=== PATIENT | male | born 1990 | race Caucasian/White ===

== ENCOUNTER 2018-05-27 08:00 | Outpatient (RCR) | payer OTHER ==
[2018-05-27 15:45] LABS: SEMEN VOLUME 1.8 ML (1.5-5.0)
== END 2018-08-25 | disposition home or self-care (01) ==
LOC: LAB 08:00 → EDSTATUS 14:32
PROVIDERS: ATTEND Nurse Practitioner Adult Health
DX: N46.01 Organic azoospermia (principal)
CPT/HCPCS: 89320